=== PATIENT | female | born 1995 ===

== ENCOUNTER 2017-09-13 02:02 | Emergency (ER) | payer OTHER ==
[2017-09-13 02:13] VITALS: BP 118/63; PULSE 77; RESP 18; TEMP 98.3; O2SAT 100
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
== END 2017-09-13 04:03 | disposition home or self-care (01) ==
LOC: H.ER 02:02
DX: M54.2 Cervicalgia (principal); M54.9 Dorsalgia, unspecified; V43.61XA Car passenger injured in collision with sport utility vehicle in traffic accident, initial encounter; Y92.410 Unspecified street and highway as the place of occurrence of the external cause
CPT/HCPCS: 81025; 96372; 99282; J1885